=== PATIENT | female | born 1990 ===

== ENCOUNTER 2018-03-01 13:45 | Emergency (ER) | payer OTHER ==
[2018-03-01 14:09] VITALS: BP 136/91; PULSE 98; RESP 18; TEMP 98; O2SAT 100
--- NOTE | 2018-03-01 14:53 | ED PDOC ---
Lower Extremity Pain/Injury Time Seen by Provider: 03/01/18 14:40 Chief Complaint (Nursing): Lower Extremity Problem/Injury Chief Complaint (Provider): Lower Extremity Problem/Injury History Per: Patient History/Exam Limitations: no limitations Onset/Duration Of Symptoms: Days (x2 days ago ) Current Symptoms Are (Timing): Still Present Additional Complaint(s): Ximena Ayers is a 28 year old female with no past medical history, who presents to the emergency department after twisting her left ankle and having right knee pain, onset x2 days ago. She states initially landed on her right knee and further reports not being able to put any weight on it initially but can now. Patient denies having any other medical complaints. PMD: Carlos Diallo - Ankle/Foot Description Of Injury: Twisted (left ankle) Past Medical History Reviewed: Historical Data, Nursing Documentation, Vital Signs Vital Signs: Last Vital Signs Temp 98 F 03/01/18 14:07 Pulse 98 H 03/01/18 14:07 Resp 18 03/01/18 14:07 BP 136/91 H 03/01/18 14:07 Pulse Ox 100 03/01/18 14:07 - Medical History PMH: No Chronic Diseases - Surgical History Surgical History: No Surg Hx - Family History Family History: States: Unknown Family Hx - Home Medications Home Medications: Ambulatory Orders Medication Instructions Recorded Ibuprofen [Motrin] 600 mg PO Q8 PRN #21 tab 03/01/18 - Allergies Allergies/Adverse Reactions: Allergies Allergy/AdvReac Type Severity Reaction Status Date / Time No Known Allergies Allergy Verified 03/01/18 14:13 Review of Systems ROS Statement: Except As Marked, All Systems Reviewed And Found Negative Musculoskeletal: Positive for: Other (right knee/left ankle pain) Physical Exam - Reviewed Nursing Documentation Reviewed: Yes Vital Signs Reviewed: Yes - Physical Exam Appears: Positive for: Well Head Exam: Positive for: ATRAUMATIC, NORMOCEPHALIC Skin: Positive for: Normal Color, Warm Eye Exam: Positive for: Normal appearance, EOMI, PERRL ENT: Positive for: Normal ENT Inspection Neck: Positive for: Normal, Painless ROM, Supple Cardiovascular/Chest: Positive for: Regular Rate, Rhythm Respiratory: Positive for: Normal Breath Sounds. Negative for: Respiratory Distress Gastrointestinal/Abdominal: Positive for: Normal Exam, Bowel Sounds, Soft. Negative for: Tenderness Back: Positive for: Normal Inspection. Negative for: L CVA Tenderness, R CVA Tenderness, Vertebral Tenderness Extremity: Positive for: Tenderness (tender aspect left medial malleolus/right knee tenderness ), Swelling (mild). Negative for: Other (no effusion ) Neurologic/Psych: Positive for: Alert, Oriented (x3) - ECG O2 Sat by Pulse Oximetry: 100 (RA) Pulse Ox Interpretation: Normal - Progress ED Course And Treament: placed in air-cast left ankle. Given crutch instructions. Medical Decision Making Medical Decision Making: Time: 14:14 Initial plan: --Motrin tab 600 mg PO --Xray knee right, left ankle, left tibia fibula Time: 15:00 Patient was discharged home. Time: 15:03 Left Ankle X-ray FINDINGS: BONES: Three views of the left ankle were performed for left ankle pain. No fracture is seen. No ankle mortise widening is noted. Subtalar joint is unremarkable. Talar dome is normal in outline. Visualized tarsal bones and metatarsals are intact. JOINTS: Normal. No osteoarthritis. Ankle mortise maintained. Talar dome intact SOFT TISSUES: Soft tissue swelling overlying the lateral malleolus. Possible small ankle joint effusion. OTHER FINDINGS: None. IMPRESSION: No fracture. Soft tissue swelling overlying the lateral malleolus consistent with soft tissue sprain. Time: 15:04 Left Tibia Fibula X-ray FINDINGS: BONES: No fracture is seen. No periosteal reaction is identified. JOINT SPACES: Unremarkable. OTHER FINDINGS: Soft tissue swelling is noted overlying the ankle. IMPRESSION: No fracture. Time: 15:05 Right Knee X-ray FINDINGS: BONES: Three views of the right knee were performed for right knee pain and trauma. No fracture is seen. No significant joint space narrowing is noted. No lytic process is seen. No periosteal reaction is noted. No loose body is seen. JOINTS: Normal. No osteoarthritis. JOINT EFFUSION: None. OTHER FINDINGS: Minor lateral patellar tilt is noted. IMPRESSION: No appreciable fracture of the right knee. Scribe Attestation: Documented by Hayden Norman, acting as a scribe for Sagar Manzano PA-C Provider Scribe Attestation: All medical record entries made by the Scribe were at my direction and personally dictated by me. I have reviewed the chart and agree that the record accurately reflects my personal performance of the history, physical exam, medical decision making, and the department course for this patient. I have also personally directed, reviewed, and agree with the discharge instructions and disposition. Disposition - Clinical Impression Clinical Impression: Contusion of knee, right, Left ankle sprain - Patient ED Disposition Is Patient to be Admitted: No - Disposition Referrals: Podiatry Clinic [Outside] Abdi Whitten MD [Staff Provider] - Disposition: Routine/Home Disposition Time: 15:00 Condition: FAIR Prescriptions: Ibuprofen [Motrin] 600 mg PO Q8 PRN #21 tab PRN Reason: Pain, Moderate (4-7) Instructions: Ankle Sprain (DC), Contusion (DC) Forms: [facility] ED School/Work Excuse
--- NOTE | 2018-03-01 15:05 | RAD ---
Date of service: 03/01/2018 PROCEDURE: Left Ankle Radiographs. HISTORY: ANKLE INJURY COMPARISON: None FINDINGS: BONES: Three views of the left ankle were performed for left ankle pain. No fracture is seen. No ankle mortise widening is noted. Subtalar joint is unremarkable. Talar dome is normal in outline. Visualized tarsal bones and metatarsals are intact. JOINTS: Normal. No osteoarthritis. Ankle mortise maintained. Talar dome intact SOFT TISSUES: Soft tissue swelling overlying the lateral malleolus. Possible small ankle joint effusion. OTHER FINDINGS: None. IMPRESSION: No fracture. Soft tissue swelling overlying the lateral malleolus consistent with soft tissue sprain.
--- NOTE | 2018-03-01 15:06 | RAD ---
Date of service: 03/01/2018 PROCEDURE: Radiographs of the left tibia and fibula. HISTORY: ANKLE INJURY COMPARISON: None available. TECHNIQUE: Frontal and lateral views of the left tibia and fibula obtained. FINDINGS: BONES: No fracture is seen. No periosteal reaction is identified. JOINT SPACES: Unremarkable. OTHER FINDINGS: Soft tissue swelling is noted overlying the ankle. IMPRESSION: No fracture.
--- NOTE | 2018-03-01 15:07 | RAD ---
Date of service: 03/01/2018 PROCEDURE: Right Knee Radiographs. HISTORY: KNEE INJURY COMPARISON: None. FINDINGS: BONES: Three views of the right knee were performed for right knee pain and trauma. No fracture is seen. No significant joint space narrowing is noted. No lytic process is seen. No periosteal reaction is noted. No loose body is seen. JOINTS: Normal. No osteoarthritis. JOINT EFFUSION: None. OTHER FINDINGS: Minor lateral patellar tilt is noted. IMPRESSION: No appreciable fracture of the right knee.
== END 2018-03-01 15:16 | disposition home or self-care (01) ==
LOC: H.ER 13:45
DX: S80.01XA Contusion of right knee, initial encounter (principal); S93.402A Sprain of unspecified ligament of left ankle, initial encounter; X50.1XXA Overexertion from prolonged static or awkward postures, initial encounter